=== PATIENT | female | born 1990 | race Caucasian/White ===

== ENCOUNTER 2018-11-13 16:43 | Emergency (ER) | payer SELFPAY ==
[~2018-11-13] VITALS: Ht 149.9 cm; Wt 63.6 kg
[2018-11-13 17:13] VITALS: BP 122/83
== END 2018-11-13 19:16 | disposition home or self-care (01) ==
LOC: EMS 16:44
DX: H66.92 Otitis media, unspecified, left ear (principal)

== ENCOUNTER 2019-06-03 17:11 | Emergency (ER) | payer SELFPAY ==
[~2019-06-03] VITALS: Ht 149.9 cm; Wt 69.5 kg
[2019-06-03] MEDS ORDERED: IBUPROFEN 600 MG TABLET PO ONE (20:15)
[2019-06-03 20:50] VITALS: BP 145/69
== END 2019-06-03 20:56 | disposition home or self-care (01) ==
LOC: EMS 17:12
DX: S93.602A Unspecified sprain of left foot, initial encounter (principal); R03.0 Elevated blood-pressure reading, without diagnosis of hypertension; X50.1XXA Overexertion from prolonged static or awkward postures, initial encounter; Y93.01 Activity, walking, marching and hiking; Y92.89 Other specified places as the place of occurrence of the external cause; Y99.8 Other external cause status

== ENCOUNTER 2022-02-13 09:25 | Emergency (ER) | payer MEDICAID, OTHER ==
[~2022-02-13] VITALS: Ht 149.9 cm; Wt 77.3 kg
[2022-02-13] MEDS ORDERED: ACETAMINOPHEN 325 MG TABLET PO ONE (10:15)
[2022-02-13] MEDS ORDERED: NAPROXEN 250 MG TABLET PO ONE (10:45)
[2022-02-13] MEDS ORDERED: LIDOCAINE 5% TRANSDERMAL PATCH TD ONE (11:00)
[2022-02-13 11:33] VITALS: BP 125/67
== END 2022-02-13 11:50 | disposition home or self-care (01) ==
LOC: EMS 09:31
DX: S13.4XXA Sprain of ligaments of cervical spine, initial encounter (principal); M54.50 Low back pain, unspecified; V49.9XXA Car occupant (driver) (passenger) injured in unspecified traffic accident, initial encounter; Y93.89 Activity, other specified; Y92.488 Other paved roadways as the place of occurrence of the external cause; Y99.8 Other external cause status
CPT/HCPCS: 99284; Z7502; Z7610

== ENCOUNTER 2022-07-16 09:37 | Emergency (ER) | payer MEDICAID ==
[~2022-07-16] VITALS: Ht 157.5 cm; Wt 75.0 kg
[2022-07-16] MEDS ORDERED: PNV1TABL89 PO (09:54)
[2022-07-16 10:16] LABS: BASOPHILS % (AUTO) 0.6 % (0.0-2.0); EOSINOPHILS % (AUTO) 0.9 % (1.0-6.0); HEMATOCRIT 40.4 % (36-46); HEMOGLOBIN 13.7 g/dL (12.0-16.0); LYMPHOCYTES # (AUTO) 1.2 K/uL (1.0-4.8); LYMPHOCYTES % (AUTO) 13.9 % (22.0-44.0); MEAN CORPUSCULAR HEMOGLOBIN 30.1 pg (26.0-34.0); MEAN CORPUSCULAR VOLUME 89 fL (80-100); MONOCYTES # (AUTO) 0.6 K/uL (0.1-1.0); MONOCYTES % (AUTO) 6.5 % (2.0-9.0); NEUTROPHILS # (AUTO) 6.6 K/uL (1.8-7.7); NEUTROPHILS % (AUTO) 78.1 % (40.0-70.0); PLATELET COUNT (AUTO) 291 K/uL (150-450); RED BLOOD CELL COUNT(AUTO) 4.56 MIL/uL (4.00-5.20); RED CELL DISTRIBUTION WIDTH 13.9 % (11.5-14.5)
[2022-07-16] MEDS ORDERED: DiphenhydrAMINE HCL 50 MG/ML VIAL IVP ONE (12:00)
[2022-07-16] MEDS ORDERED: METOCLOPRAMIDE HCL 5 MG/ML 2 ML VIAL IVP ONE (12:00)
[2022-07-16] MEDS ORDERED: SODIUM CHLORIDE 0.9% 1,000 ML IV ONE (12:00)
[2022-07-16] MEDS ORDERED: ACETAMINOPHEN 500 MG TABLET PO ONE (12:15)
[2022-07-16] MEDS ORDERED: DOXY1TAB3 PO (13:45)
[2022-07-16 15:17] VITALS: BP 125/62
[2022-07-16 15:31] LABS: APPEARANCE,URINE CLEAR (CLEAR); BILIRUBIN,URINE NEGATIVE (NEGATIVE); GLUCOSE, URINE (UA) NEGATIVE (NEGATIVE); KETONES,URINE NEGATIVE (NEGATIVE); LEUKOCYTE ESTERASE ,URINE NEGATIVE (NEGATIVE); NITRATE,URINE NEGATIVE (NEGATIVE); OCCULT BLOOD,URINE NEGATIVE (NEGATIVE); PH,URINE 6.5 (5.0-8.0); PROTEIN,URINE NEGATIVE (NEGATIVE); SPECIFIC GRAVITIY, URINE 1.009 (1.003-1.030); UROBILINOGEN,URINE <=1.0 mg/dL (<=1.0)
[2022-07-16 16:21] LABS: BACTERIA,URINE None Seen /HPF (None Seen); RBC,URINE None Seen /HPF (0-2); WBC,URINE None Seen /HPF (0-5)
== END 2022-07-16 16:14 | disposition home or self-care (01) ==
LOC: EMS 09:37
DX: O26.891 Other specified pregnancy related conditions, first trimester (principal); O21.8 Other vomiting complicating pregnancy; Z3A.01 Less than 8 weeks gestation of pregnancy; R10.31 Right lower quadrant pain; F10.20 Alcohol dependence, uncomplicated
CPT/HCPCS: 99284; 96374; 76801; 96361; 96375; 81001; 84702; 85025; 86901; 36415; 76817; J1200; J2765; J7030

== ENCOUNTER 2022-07-23 15:38 | Emergency (ER) | payer MEDICAID ==
[~2022-07-23] VITALS: Ht 152.4 cm; Wt 77.3 kg
[~2022-07-23 15:38] MED LIST: DOXY1TAB3 PO; PNV1TABL89 PO
[2022-07-23 15:39] VITALS: BP 124/72
[2022-07-23] MEDS ORDERED: ONDANSETRON HCL 4 MG/2 ML VIAL IM ONE (16:45)
[2022-07-23] MEDS ORDERED: PROM25SU10 PR (17:11)
[2022-07-23] MEDS ORDERED: ONDA-104 PO (17:11)
== END 2022-07-23 18:08 | disposition home or self-care (01) ==
LOC: EMS 15:38
DX: O21.9 Vomiting of pregnancy, unspecified (principal); Z3A.00 Weeks of gestation of pregnancy not specified; F10.20 Alcohol dependence, uncomplicated
CPT/HCPCS: 99283; 96372; J2405

== ENCOUNTER 2022-09-06 16:00 | Emergency (ER) | payer MEDICAID ==
[~2022-09-06] VITALS: Ht 149.9 cm; Wt 75.0 kg
[~2022-09-06 16:00] MED LIST changes: +ONDA-104 PO; +PROM25SU10 PR
[2022-09-06 17:45] LABS: BASOPHILS % (AUTO) 0.3 % (0.0-2.0); EOSINOPHILS % (AUTO) 1.4 % (1.0-6.0); HEMATOCRIT 38.4 % (36-46); LYMPHOCYTES # (AUTO) 1.3 K/uL (1.0-4.8); LYMPHOCYTES % (AUTO) 15.8 % (22.0-44.0); MEAN CORPUSCULAR HEMOGLOBIN 30.2 pg (26.0-34.0); MEAN CORPUSCULAR HGB CONC 33.9 G/dL (31.0-37.0); MEAN CORPUSCULAR VOLUME 89 fL (80-100); MONOCYTES # (AUTO) 0.5 K/uL (0.1-1.0); MONOCYTES % (AUTO) 6.2 % (2.0-9.0); NEUTROPHILS % (AUTO) 76.3 % (40.0-70.0); PLATELET COUNT (AUTO) 248 K/uL (150-450); RED CELL DISTRIBUTION WIDTH 12.7 % (11.5-14.5)
[2022-09-06 17:52] LABS: APPEARANCE,URINE CLEAR (CLEAR); BILIRUBIN,URINE NEGATIVE (NEGATIVE); GLUCOSE, URINE (UA) NEGATIVE (NEGATIVE); KETONES,URINE NEGATIVE (NEGATIVE); LEUKOCYTE ESTERASE ,URINE NEGATIVE (NEGATIVE); NITRATE,URINE NEGATIVE (NEGATIVE); OCCULT BLOOD,URINE NEGATIVE (NEGATIVE); PROTEIN,URINE NEGATIVE (NEGATIVE); SPECIFIC GRAVITIY, URINE 1.022 (1.003-1.030); UROBILINOGEN,URINE <=1.0 mg/dL (<=1.0)
[2022-09-06 17:57] LABS: ANION GAP 9 mmol/L (8-16); CARBON DIOXIDE 23 mmol/L (22-29); CHLORIDE 102 mmol/L (98-107); CREATININE 0.52 mg/dL (0.60-1.30); GLUCOSE,RANDOM 122 mg/dL (70-110); POTASSIUM 3.8 mmol/L (3.5-5.1); SODIUM SERUM 134 mmol/L (136-145); UREA NITROGEN, BLOOD 11 mg/dL (7-18)
[2022-09-06 18:00] LABS: GLOMERULAR FILTR. RATE CALC > 60 mL/min (>60)
[2022-09-06 18:05] LABS: BACTERIA,URINE Moderate /HPF (None Seen); RBC,URINE 0-2 /HPF (0-2); SQUAMOUS EPITHELIAL CELL,UR Few /LPF (None Seen); WBC,URINE 0-2 /HPF (0-5)
[2022-09-06 18:09] LABS: COVID AG,FIA SOURCE NASOPHARYNGEAL
[2022-09-06 18:26] LABS: RAPID GROUP A STREP NEGATIVE (NEGATIVE)
[2022-09-06 18:34] LABS: INFLUENZA TYPE A NEGATIVE FOR TYPE A (NEGATIVE); INFLUENZA TYPE B NEGATIVE FOR TYPE B (NEGATIVE)
[2022-09-06] MEDS ORDERED: GUAI100S13 PO (19:44)
[2022-09-06] MEDS ORDERED: CEPH-558 PO (19:44)
[2022-09-06] MEDS ORDERED: ACET-66 PO (19:44)
[2022-09-06] MEDS: ACETAMINOPHEN 500 MG TABLET PO ONE (20:21)
[2022-09-06] MEDS: IBUPROFEN 400 MG TABLET PO ONE (20:21)
[2022-09-06 20:25] VITALS: BP 129/69
== END 2022-09-07 00:26 | disposition home or self-care (01) ==
LOC: EMS 16:11
DX: J02.9 Acute pharyngitis, unspecified (principal); Z98.890 Other specified postprocedural states; Z20.822 Contact with and (suspected) exposure to COVID-19; Z3A.15 15 weeks gestation of pregnancy
CPT/HCPCS: 80048; 81001; 85025; 87086; 87430; 87804; 99283

== ENCOUNTER 2022-09-17 18:37 | Emergency (ER) | payer MEDICAID ==
[~2022-09-17] VITALS: Ht 149.9 cm; Wt 77.3 kg
[~2022-09-17 18:37] MED LIST changes: +ACET-66 PO; +CEPH-558 PO; -DOXY1TAB3 PO; +GUAI100S13 PO; -ONDA-104 PO; -PROM25SU10 PR
[2022-09-17 18:39] VITALS: BP 117/70
== END 2022-09-17 20:31 | disposition left against medical advice (07) ==
LOC: EMS 18:37
DX: Z53.21 Procedure and treatment not carried out due to patient leaving prior to being seen by health care provider (principal)

== ENCOUNTER 2022-09-20 11:24 | Emergency (ER) | payer MEDICAID ==
[~2022-09-20] VITALS: Ht 149.9 cm; Wt 72.7 kg
[~2022-09-20 11:24] MED LIST changes: -ACET-66 PO; -CEPH-558 PO; -GUAI100S13 PO
[2022-09-20 15:15] VITALS: BP 125/72
== END 2022-09-20 15:30 | disposition home or self-care (01) ==
LOC: EMS 11:36
DX: O26.892 Other specified pregnancy related conditions, second trimester (principal); S20.222A Contusion of left back wall of thorax, initial encounter; R07.81 Pleurodynia; M54.9 Dorsalgia, unspecified; Z98.890 Other specified postprocedural states; Z3A.16 16 weeks gestation of pregnancy; W01.198A Fall on same level from slipping, tripping and stumbling with subsequent striking against other object, initial encounter; Y93.89 Activity, other specified; Y92.89 Other specified places as the place of occurrence of the external cause; Y99.8 Other external cause status
CPT/HCPCS: 71046; 76805; 99284

== ENCOUNTER 2023-06-26 21:46 | Emergency (ER) | payer MEDICAID, OTHER ==
[~2023-06-26] VITALS: Ht 149.9 cm; Wt 77.3 kg
[2023-06-26] MEDS ORDERED: ACETAMINOPHEN 500 MG TABLET PO ONE (23:15)
[2023-06-26] MEDS ORDERED: ACET-3385 PO (23:30)
[2023-06-27 00:09] VITALS: BP 124/69; PULSE 65; RESP 17; TEMP 97.9
== END 2023-06-27 00:40 | disposition home or self-care (01) ==
LOC: EMS 21:47
DX: S70.01XA Contusion of right hip, initial encounter (principal); Z98.890 Other specified postprocedural states; V49.88XA Car occupant (driver) (passenger) injured in other specified transport accidents, initial encounter; Y93.89 Activity, other specified; Y92.89 Other specified places as the place of occurrence of the external cause; Y99.8 Other external cause status
CPT/HCPCS: 99282; Z7502; Z7610